=== PATIENT | female | born 1970 | race Caucasian/White ===

== ENCOUNTER 2019-01-08 16:03 | Emergency (ER) | payer BC ==
[~2019-01-08] VITALS: Ht 165.1 cm; Wt 65.8 kg
[2019-01-08] MEDS ORDERED: LORAZEPAM 1 MG TABLET ONE (16:35)
[2019-01-08] MEDS ORDERED: FOLIC ACID PO (16:37)
[2019-01-08] MEDS ORDERED: MULT-1045 PO (16:37)
[2019-01-08] MEDS ORDERED: LEVE500T9 PO (16:37)
[2019-01-08] MEDS: LORAZEPAM 0.5 MG TABLET PO ONE ×2 (16:38→16:49)
--- NOTE | 2019-01-08 16:38 | NUR ---
*Patient and detox staff said to HOLD the ativan for now until patient gets approval from the detox center. notified.
[2019-01-08] MEDS ORDERED: ONDA4TAB5 PO (16:43)
[2019-01-08] MEDS ORDERED: TRAZ-214 PO (16:43)
[2019-01-08] MEDS ORDERED: AMOX1TAB16 PO (16:43)
[2019-01-08] MEDS ORDERED: GABA-534 PO (16:45)
[2019-01-08] MEDS ORDERED: DOXE50CA4 PO (16:45)
[2019-01-08] MEDS ORDERED: LAMO100T2 PO (16:45)
[2019-01-08] MEDS ORDERED: CARB200T PO (16:46)
--- NOTE | 2019-01-08 16:54 | NUR ---
Patient discharged to home in stable conditon & brisk steady gait. Written and verbal after care instructions given to patient and patient's own detox center staff. Patient and the detox center staff member verbalized understanding of instructions.
== END 2019-01-08 17:03 | disposition home or self-care (01) ==
LOC: ER 16:04
DX: F10.239 Alcohol dependence with withdrawal, unspecified (principal); Z88.2 Allergy status to sulfonamides; Z79.899 Other long term (current) drug therapy; Y90.9 Presence of alcohol in blood, level not specified
CPT/HCPCS: A4663

== ENCOUNTER 2020-07-20 01:59 | Emergency (ER) | payer BC ==
[~2020-07-20] VITALS: Ht 152.4 cm; Wt 61.2 kg
[~2020-07-20 01:59] MED LIST: AMOX1TAB16 PO; CARB200T PO; DOXE50CA4 PO; FOLIC ACID PO; GABA-534 PO; LAMO100T2 PO; LEVE500T9 PO; MULT-1045 PO; ONDA4TAB5 PO; TRAZ-257 PO
--- NOTE | 2020-07-20 02:05 | NUR ---
Dr. Bernardo at bedside for [facility]SE.
[2020-07-20] MEDS ORDERED: LET TOPICAL SOLUTION 8 ML UDC ONE (02:11)
[2020-07-20] MEDS ORDERED: ONDANSETRON 4 MG/2 ML VIAL IV ONE (02:15)
[2020-07-20] MEDS ORDERED: LET TOPICAL SOLUTION 8 ML UDC TP ONE (02:15)
[2020-07-20] MEDS ORDERED: IV NORMAL SALINE 1000 ML BAG IV ONE ×2 (02:15→03:00)
[2020-07-20] MEDS ORDERED: ONDANSETRON 4 MG/2 ML VIAL ONE (02:19)
[2020-07-20 02:29] LABS: BASOPHILS # (AUTO) 0.1 K/uL (0.0-8.0); BASOPHILS % (AUTO) 0.7 % (0.0-2.0); EOSINOPHILS # (AUTO) 0.3 K/uL (0.0-0.7); EOSINOPHILS % (AUTO) 3.2 % (0.0-7.0); HEMATOCRIT 37.4 % (31.2-41.9); HEMOGLOBIN 12.4 g/dL (10.9-14.3); LYMPHOCYTES # (AUTO) 2.1 K/uL (20.0-40.0); LYMPHOCYTES % (AUTO) 26.5 % (20.5-51.5); MEAN CORPUSCULAR HEMOGLOBIN 30.6 uug (24.7-32.8); MEAN CORPUSCULAR HGB CONC 33 g/dL (32.3-35.6); MEAN CORPUSCULAR VOLUME 92.5 fL (75.5-95.3); MONOCYTES # (AUTO) 0.7 K/uL (2.0-10.0); MONOCYTES % (AUTO) 8.4 % (0.0-11.0); NEUTROPHILS # (AUTO) 4.9 K/uL (1.8-8.9); NEUTROPHILS % (AUTO) 61.2 % (38.5-71.5); PLATELET COUNT (AUTO) 246 K/uL (179-408); RED BLOOD CELL COUNT(AUTO) 4.04 MIL/uL (3.63-4.92)
[2020-07-20] MEDS ORDERED: LIDOCAINE VISCUS 2% 15 ML UDC MM ONE (02:30)
[2020-07-20] MEDS ORDERED: LIDOCAINE VISCUS 2% 15 ML UDC ONE (02:35)
[2020-07-20] MEDS ORDERED: PENICILLIN V POTASSIUM 500 MG TABLET ONE (02:37)
[2020-07-20] MEDS ORDERED: HYDROMORPHONE 1 MG/1 ML DISP.SYRIN ONE (02:37)
[2020-07-20 02:44] LABS: BILIRUBIN,DIRECT 0.1 mg/dL (0.0-0.2); BILIRUBIN,TOTAL 0.4 mg/dL (0.2-1.0); CREATININE 0.8 mg/dL (0.6-1.3); POTASSIUM 3.7 mmol/L (3.5-5.1); TOTAL PROTEIN, SERUM 6.3 g/dL (6.4-8.2)
[2020-07-20] MEDS ORDERED: PENICILLIN V POTASSIUM 500 MG TABLET PO ONE (02:45)
[2020-07-20] MEDS ORDERED: HYDROMORPHONE 1 MG/1 ML DISP.SYRIN IV ONE (02:45)
[2020-07-20] MEDS ORDERED: LIDOCAINE 1%-EPI 1:100,000 20 ML VIAL IJ ONE (03:00)
[2020-07-20] MEDS ORDERED: SODIUM BICARBONATE 4.2 % (NEUT) 5 ML VIAL TP ONE (03:00)
--- NOTE | 2020-07-20 04:13 | NUR ---
Patient discharged to home in stable condition. Written and verbal after care instructions given. Patient verbalizes understanding of instructions. Stressed follow up or return to ER for worsening s/s. Patient ambulated out of ER with steady gait, no acute signs of distress, VSS, all belongings taken, IV site discontinued, provided with copies of lab results, instructed not to drive, to be driven home by [employer] furnace repairer helper, Stephanie.
[2020-07-20 04:15] VITALS: BP 94/59
[2020-07-20] MEDS ORDERED: HYDROCODONE/APAP 10-325 MG TABLET ONE (04:15)
[2020-07-20] MEDS ORDERED: HYDROCODONE/APAP 10-325 MG TABLET PO ONE (04:15)
== END 2020-07-20 04:15 | disposition home or self-care (01) ==
LOC: ER 01:59
DX: S03.2XXA Dislocation of tooth, initial encounter (principal); W18.39XA Other fall on same level, initial encounter; Y92.099 Unspecified place in other non-institutional residence as the place of occurrence of the external cause; R55 Syncope and collapse; F10.20 Alcohol dependence, uncomplicated
CPT/HCPCS: 36415; 41899; 80048; 80076; 85025; 85730; 93005; 96361; 96374; 96375; 99284; J1170; J2405